=== PATIENT | male | born 1990 | race Caucasian/White ===

== ENCOUNTER 2018-11-13 10:34 | Outpatient (CLI) | payer BC ==
--- NOTE | 2018-11-14 01:27 | XRAY Report ---
Reason: PAIN IN LEFT ANKLE AND JOINT Procedure Date: 11/13/2018 Accession Number: [id number] / [id number] Procedure: XR - Ankle 3 View LT CPT Code: FULL RESULT: EXAM: LEFT ANKLE RADIOGRAPHY EXAM DATE: 11/13/2018 10:45 AM. CLINICAL HISTORY: PAIN IN LEFT ANKLE AND JOINT. Rolled ankle on a step. COMPARISON: None. TECHNIQUE: 4 views. FINDINGS: Bones: No evidence for acute fracture. Small bone island and at the base of the fifth metatarsal. Joints: Minimal bone spur of the medial malleolus. Mild tibiotalar osteophytes. No subluxation. Soft Tissues: Diffuse ankle soft tissue swelling most prominent at the lateral aspect. There is soft tissue swelling seen at the lateral lower leg. IMPRESSION: 1. No evidence for acute fracture. 2. Diffuse ankle soft tissue swelling most prominent at the lateral aspect. There is soft tissue swelling seen at the lateral lower leg. 3. Mild tibiotalar degenerative joint disease. [facility]
== END 2018-11-13 10:35 | disposition home or self-care (01) ==
LOC: DI 10:34
PROVIDERS: ATTEND Specialist
DX: M79.89 Other specified soft tissue disorders (principal); M19.072 Primary osteoarthritis, left ankle and foot

== ENCOUNTER 2019-06-23 20:48 | Outpatient (CLI) | payer BC ==
--- NOTE | 2019-06-24 00:09 | Ultrasound Report ---
Reason: RUE SOFT TISSUE MASS Procedure Date: 06/23/2019 Accession Number: [id number] / [id number] Procedure: US - Duplex Ext Veins Right CPT Code: Final Report FULL RESULT: EXAM: RIGHT LOWER EXTREMITY VENOUS ULTRASOUND. EXAM DATE: 06/23/2019 09:50 PM. CLINICAL HISTORY: Rright upper extremity soft tissue mass. COMPARISON: None. TECHNIQUE: Real-time sonographic vascular imaging was performed by the upholstery cleaner through the lower extremity utilizing both color-flow and Doppler spectral analysis. Multiple packaging sales representative static images were saved for review. FINDINGS: Common Femoral Vein (CFV): Normal. CFV-GSV Junction: Normal. Profunda Femoral Vein (PFV): Normal. Femoral Vein (FV) Prox: Normal. Femoral Vein (FV) Mid: Normal. Femoral Vein (FV) Dist: Normal. Popliteal Vein: Normal. Posterior Tibial Veins: Normal. Peroneal Veins: Normal. Contralateral Side CFV: Normal. Other: Palpable soft tissue mass in the right upper arm corresponds to a subcutaneous relatively hyperechoic 1.4 x 0.6 x 1.5 cm soft tissue mass with central hypodensity. No internal vascularity is noted. No tract to the skin surface is identified. Remaining soft tissues are normal. IMPRESSION: 1. No evidence for deep venous thrombosis. 2. Soft tissue mass corresponds to an avascular hypoechoic 1.4 x 0.6 x 1.5 cm subcutaneous soft tissue mass with central areas of hypoechoic parenchyma. Overall sonographic appearance appears benign. This probably represents a small lipoma. 3. If the mass continues to increase in size or becomes painful, recommend MRI with and without contrast. [facility]
== END 2019-06-23 20:49 | disposition home or self-care (01) ==
LOC: DI 20:48
PROVIDERS: ATTEND Physician Assistant
DX: R22.31 Localized swelling, mass and lump, right upper limb (principal)